=== PATIENT | female | born 1985 | race African-American/Black ===

== ENCOUNTER 2023-03-15 15:20 | Inpatient (IN) | payer OTHER ==
[~2023-03-15 15:20] MED LIST: AMPICILLIN SODIUM 2 GM VIAL IVPB ONE
[2023-03-15] MEDS ORDERED: DINOPROSTONE 10 MG VAGINAL SUPPOSITORY VG ONE (16:45)
[2023-03-15 16:57] VITALS: BMI 28.3
[2023-03-15] MEDS ORDERED: SODIUM CHLORIDE 100 ML IVPB ONE (17:30)
[2023-03-15] MEDS ORDERED: AMPICILLIN SODIUM 2 GM VIAL ONE (17:30)
[2023-03-15] MEDS: ELECTROLYTE-148 SOLN 1,000 ML IV SCH (17:30)
[2023-03-15 18:39] LABS: BASO % 0.2 % (0-2.0); EOS % 0.3 % (0-4.5); HEMATOCRIT 34.2 % (32.4-45.2); HEMOGLOBIN 11.1 GM/dL (10.7-15.3); MCH 26.4 pg (25.7-33.7); MCHC 32.3 g/dl (32.0-36.0); MEAN CELL VOLUME 81.7 fl (80-96); MEAN PLT VOLUME 10.2 fl (7.5-11.1); MONO % 8.9 % (3.8-10.2); NEUT % 80.6 % (42.8-82.8); PLATELET COUNT 123 10^3/uL (134-434); RBC 4.19 M/mm3 (3.60-5.2); RDW 18.8 % (11.6-15.6); WHITE BLOOD COUNT 9.5 K/mm3 (4.0-10.0)
[2023-03-15 18:40] LABS: PH,URINE 5.5 (5.0-8.0); URINE APPEARANCE CLEAR; URINE BILIRUBIN NEGATIVE (NEGATIVE); URINE COLOR YELLOW; URINE GLUCOSE (UA) NEGATIVE (NEGATIVE); URINE KETONE TRACE (NEGATIVE); URINE LEUK ESTERASE NEGATIVE (NEGATIVE); URINE NITRITE NEGATIVE (NEGATIVE); URINE PROTEIN TRACE (NEGATIVE); URINE UROBILINOGEN 0.2 mg/dL (0.2-1.0)
[2023-03-15] MEDS ORDERED: AMPICILLIN - 1 GM in SODIUM CHLORIDE 100 ML IVPB SCH (18:40)
[2023-03-15 18:46] LABS: INR 0.99 (0.83-1.09); PROTHROMBIN TIME (PATIENT) 11.5 SEC (9.7-13.0)
[2023-03-15 18:49] LABS: ACTIVATED PTT 26.3 SECONDS (25.2-36.5)
[2023-03-15 19:10] LABS: POTASSIUM 4.3 mmol/L (3.5-5.1)
[2023-03-15 19:12] LABS: BLOOD UREA NITROGEN 9.3 mg/dL (7-18); CALCIUM 9.1 mg/dL (8.5-10.1)
[2023-03-15 19:15] LABS: URIC ACID 5.6 mg/dL (2.6-7.2)
[2023-03-15 19:17] LABS: BILIRUBIN,TOTAL 0.3 mg/dL (0.2-1); TOT PROT 6.2 g/dl (6.4-8.2)
[2023-03-15] MEDS ORDERED: NIFEdipine 10 MG CAPSULE (FP) PO ONE (21:25)
[2023-03-15] MEDS ORDERED: NIFEdipine 10 MG CAPSULE (FP) ONE (21:27)
[2023-03-15] MEDS ORDERED: AMPICILLIN SODIUM 1 GM VIAL ONE (21:27)
[2023-03-15] MEDS: AMPICILLIN - 1 GM in SODIUM CHLORIDE 100 ML IVPB SCH (21:30)
[2023-03-15] MEDS ORDERED: NIFEdipine E.R. 30 MG TABLET PO ONE (21:30)
[2023-03-16] MEDS ORDERED: AMPICILLIN SODIUM 1 GM VIAL ONE ×2 (01:59→05:38)
[2023-03-16] MEDS: AMPICILLIN - 1 GM in SODIUM CHLORIDE 100 ML IVPB SCH ×3 (02:00→12:35)
[2023-03-16] MEDS ORDERED: PROMETHAZINE HCL 25 MG/1 ML VIAL IVPB ONE (02:30)
[2023-03-16] MEDS ORDERED: BUTORPHANOL TARTRATE 1 MG/ML VIAL IVPB ONE (02:30)
[2023-03-16] MEDS ORDERED: BUTORPHANOL TARTRATE 1 MG/ML VIAL ONE (02:33)
[2023-03-16] MEDS ORDERED: PROMETHAZINE HCL 25 MG/1 ML VIAL ONE (02:33)
[2023-03-16] MEDS ORDERED: NIFEdipine 10 MG CAPSULE (FP) ONE (05:13)
[2023-03-16] MEDS ORDERED: NIFEdipine 10 MG CAPSULE (FP) PO ONE (05:15)
[2023-03-16] MEDS ORDERED: MAGNESIUM 4GM/H20 - 4 GM/100 ML IVPB IVPB ONE ×2 (06:25)
[2023-03-16] MEDS ORDERED: MAGNESIUM SULFATE 20GM/500ML - 20 GM/500 ML INFUS.BAG ONE ×2 (07:03→17:13)
[2023-03-16] MEDS: MAGNESIUM SULFATE 20GM/500ML - 20 GM/500 ML INFUS.BAG IVPB SCH ×2 (07:05→17:20)
[2023-03-16] MEDS ORDERED: LABETALOL HCL 20 MG/4 ML VIAL ONE (07:36)
[2023-03-16] MEDS ORDERED: LABETALOL HCL 20 MG/4 ML VIAL IVPUSH ONE (07:50)
[2023-03-16 08:43] LABS: INR 0.94 (0.83-1.09); PROTHROMBIN TIME (PATIENT) 10.9 SEC (9.7-13.0)
[2023-03-16 08:44] LABS: BASO % 0.4 % (0-2.0); HEMATOCRIT 34.9 % (32.4-45.2); HEMOGLOBIN 11.3 GM/dL (10.7-15.3); LYMPH % 5.7 % (8-40); MCH 26.5 pg (25.7-33.7); MCHC 32.2 g/dl (32.0-36.0); MEAN PLT VOLUME 10.5 fl (7.5-11.1); MONO % 6.5 % (3.8-10.2); NEUT % 87.4 % (42.8-82.8); PLATELET COUNT 141 10^3/uL (134-434); RBC 4.26 M/mm3 (3.60-5.2); RDW 18.8 % (11.6-15.6)
[2023-03-16 08:46] LABS: ACTIVATED PTT 25.7 SECONDS (25.2-36.5)
[2023-03-16] MEDS: ELECTROLYTE-148 SOLN 1,000 ML IV SCH (08:50)
[2023-03-16 09:07] LABS: CALCIUM 8.3 mg/dL (8.5-10.1)
[2023-03-16 09:08] LABS: ALBUMIN 2.8 g/dl (3.4-5.0); BLOOD UREA NITROGEN 9.4 mg/dL (7-18)
[2023-03-16 09:11] LABS: CREATININE 0.9 mg/dL (0.55-1.3)
[2023-03-16 09:12] LABS: TOT PROT 6.3 g/dl (6.4-8.2)
[2023-03-16 09:13] LABS: BILIRUBIN,TOTAL 0.3 mg/dL (0.2-1)
[2023-03-16] MEDS ORDERED: FENTANYL CITRATE/PF 50 MCG/ML VIAL ONE (09:34)
[2023-03-16] MEDS ORDERED: morphine SULFATE/PF 1 MG/2 ML (2cc Syringe - QUVA) ONE (09:34)
[2023-03-16] MEDS ORDERED: KETOROLAC TROMETHAMINE 30 MG/1 ML VIAL ONE (09:43)
[2023-03-16] MEDS ORDERED: OXYTOCIN 10 UNITS/ML VIAL ONE (09:43)
[2023-03-16] MEDS ORDERED: ONDANSETRON 4 MG/2 ML VIAL ONE (09:43)
[2023-03-16] MEDS ORDERED: ceFAZolin SODIUM 1 GM VIAL ONE (09:43)
[2023-03-16] MEDS ORDERED: MISOPROSTOL 200 MCG TABLET ONE ×2 (10:22→10:33)
[2023-03-16] MEDS ORDERED: OXYTOCIN 20 UNITS in 0.9% NS 20 UNIT/1,000 ML INFUS.BAG IV ONE (11:34)
[2023-03-16] MEDS ORDERED: ONDANSETRON 4 MG/2 ML VIAL IVPUSH PRN (11:37)
[2023-03-16] MEDS ORDERED: morphine SULFATE/PF 1 MG/2 ML (2cc Syringe - QUVA) EP ONE (11:37)
[2023-03-16] MEDS ORDERED: ACETAMINOPHEN 1000 MG/100 ML BAG IVPB ONE (11:38)
[2023-03-16] MEDS: OXYTOCIN 20 UNITS in 0.9% NS 20 UNIT/1,000 ML INFUS.BAG IV SCH (11:45)
[2023-03-16] MEDS ORDERED: DIPHENOXYLATE 2.5/ATROPINE.025 1 COMBO TABLET PO ONE (12:13)
[2023-03-16] MEDS ORDERED: ACETAMINOPHEN INJECTION 100 ML IVPB ONE (12:38)
[2023-03-16] MEDS ORDERED: IBUPROFEN 800 MG/8 ML IJ IVPB ONE ×2 (14:41→20:03)
[2023-03-16] MEDS: IBUPROFEN 800 MG/8 ML IJ IVPB SCH ×2 (14:48→23:05)
[2023-03-16 19:03] LABS: BASO % 0.1 % (0-2.0); HEMATOCRIT 31.4 % (32.4-45.2); LYMPH % 5.3 % (8-40); MCH 26.4 pg (25.7-33.7); MCHC 31.8 g/dl (32.0-36.0); MEAN CELL VOLUME 83.1 fl (80-96); MEAN PLT VOLUME 10.4 fl (7.5-11.1); MONO % 7.7 % (3.8-10.2); NEUT % 86.9 % (42.8-82.8); PLATELET COUNT 137 10^3/uL (134-434); RBC 3.78 M/mm3 (3.60-5.2); RDW 19.2 % (11.6-15.6); WHITE BLOOD COUNT 15.3 K/mm3 (4.0-10.0)
[2023-03-16 19:21] LABS: POTASSIUM 5.3 mmol/L (3.5-5.1)
[2023-03-16 19:25] LABS: CALCIUM 7.8 mg/dL (8.5-10.1)
[2023-03-16 19:26] LABS: ALBUMIN 2.6 g/dl (3.4-5.0); BLOOD UREA NITROGEN 8.8 mg/dL (7-18)
[2023-03-16 19:29] LABS: CREATININE 1.1 mg/dL (0.55-1.3)
[2023-03-16 19:31] LABS: BILIRUBIN,TOTAL 0.2 mg/dL (0.2-1); TOT PROT 5.6 g/dl (6.4-8.2)
[2023-03-17] MEDS ORDERED: oxyCODONE HCL 5 MG TABLET PO PRN ×2 (00:11)
[2023-03-17] MEDS ORDERED: MAGNESIUM SULFATE 20GM/500ML - 20 GM/500 ML INFUS.BAG ONE (02:41)
[2023-03-17] MEDS: MAGNESIUM SULFATE 20GM/500ML - 20 GM/500 ML INFUS.BAG IVPB SCH ×2 (02:56→07:36)
[2023-03-17] MEDS: OXYTOCIN 20 UNITS in 0.9% NS 20 UNIT/1,000 ML INFUS.BAG IV SCH (02:57)
[2023-03-17] MEDS ORDERED: OXYTOCIN 20 UNITS in 0.9% NS 20 UNIT/1,000 ML INFUS.BAG IV ONE (02:59)
[2023-03-17] MEDS ORDERED: IBUPROFEN 800 MG/8 ML IJ IVPB ONE (07:27)
[2023-03-17] MEDS: IBUPROFEN 800 MG/8 ML IJ IVPB SCH ×3 (07:34→16:23)
[2023-03-17 07:40] LABS: BASO % 0.2 % (0-2.0); EOS % 0.2 % (0-4.5); HEMATOCRIT 28.8 % (32.4-45.2); HEMOGLOBIN 9.1 GM/dL (10.7-15.3); LYMPH % 7.3 % (8-40); MCH 26.7 pg (25.7-33.7); MCHC 31.7 g/dl (32.0-36.0); MEAN CELL VOLUME 84.2 fl (80-96); MEAN PLT VOLUME 10.6 fl (7.5-11.1); MONO % 6.4 % (3.8-10.2); NEUT % 85.9 % (42.8-82.8); PLATELET COUNT 128 10^3/uL (134-434); RBC 3.41 M/mm3 (3.60-5.2); RDW 19.4 % (11.6-15.6); WHITE BLOOD COUNT 11.8 K/mm3 (4.0-10.0)
[2023-03-17] MEDS: FERROUS SO4 325 MG TABLET (FP) PO SCH (11:00)
[2023-03-17] MEDS ORDERED: FERROUS SO4 325 MG TABLET (FP) ONE (11:01)
[2023-03-17 11:31] LABS: CALCIUM 7.1 mg/dL (8.5-10.1)
[2023-03-17 11:32] LABS: ALBUMIN 2.4 g/dl (3.4-5.0); BLOOD UREA NITROGEN 7.5 mg/dL (7-18)
[2023-03-17 11:35] LABS: TOT PROT 5.3 g/dl (6.4-8.2)
[2023-03-17 11:36] LABS: BILIRUBIN,TOTAL 0.2 mg/dL (0.2-1)
[2023-03-17] MEDS: SIMETHICONE 80 MG TAB.CHEW (FP) PO PRN (21:11)
[2023-03-17 23:54] VITALS: RESP 18
[2023-03-18] MEDS: IBUPROFEN 800 MG/8 ML IJ IVPB SCH ×2 (00:28→06:19)
[2023-03-18] MEDS: FERROUS SO4 325 MG TABLET (FP) PO SCH (10:54)
[2023-03-18] MEDS: LABETALOL HCL 200 MG TABLET (FP) PO PRN ×2 (11:21→21:23)
[2023-03-18] MEDS: SIMETHICONE 80 MG TAB.CHEW (FP) PO PRN ×2 (17:41→21:14)
[2023-03-18] MEDS: IBUPROFEN 600 MG TABLET (FP) PO SCH ×2 (17:41→23:00)
[2023-03-19] MEDS: IBUPROFEN 600 MG TABLET (FP) PO SCH ×2 (05:31→12:42)
[2023-03-19 05:37] VITALS: TEMP 97.9
[2023-03-19] MEDS: LABETALOL HCL 200 MG TABLET (FP) PO PRN ×2 (05:39→12:42)
[2023-03-19 07:15] LABS: BASO % 0.3 % (0-2.0); EOS % 0.9 % (0-4.5); HEMATOCRIT 22.6 % (32.4-45.2); HEMOGLOBIN 7.2 GM/dL (10.7-15.3); LYMPH % 14.6 % (8-40); MCH 26.8 pg (25.7-33.7); MCHC 31.8 g/dl (32.0-36.0); MEAN CELL VOLUME 84.3 fl (80-96); MEAN PLT VOLUME 10.4 fl (7.5-11.1); MONO % 7.5 % (3.8-10.2); NEUT % 76.7 % (42.8-82.8); PLATELET COUNT 153 10^3/uL (134-434); RBC 2.68 M/mm3 (3.60-5.2); RDW 19.1 % (11.6-15.6); WHITE BLOOD COUNT 9.4 K/mm3 (4.0-10.0)
[2023-03-19] MEDS: FERROUS SO4 325 MG TABLET (FP) PO SCH (10:34)
[2023-03-19 13:25] VITALS: BP 134/94; PULSE 93
== END 2023-03-19 13:55 | disposition home or self-care (01) | DRG 540 ==
LOC: JLDR 15:20 → J3W 03-17 12:08
PROVIDERS: ADMIT Obstetrics & Gynecology; ATTEND Obstetrics & Gynecology
PROC: 10D00Z1 Extraction of Products of Conception, Low, Open Approach (ICD-10-PCS; principal; 2023-03-16)
DX: O14.14 Severe pre-eclampsia complicating childbirth (principal); O48.0 Post-term pregnancy; O99.824 Streptococcus B carrier state complicating childbirth; Z3A.40 40 weeks gestation of pregnancy; Z37.0 Single live birth
CPT/HCPCS: 36415; 80048; 80053; 81003; 82570; 83735; 84156; 84550; 85025; 85610; 85730; 86780; 86850; 86900; 86901; 88307-TC; 94010

== ENCOUNTER 2023-04-05 03:55 | Inpatient (IN) | payer OTHER ==
[2023-04-05 04:05] VITALS: BMI 49.9
[2023-04-05] MEDS ORDERED: LABETALOL HCL 200 MG TABLET (FP) PO ONE (04:29)
[2023-04-05] MEDS ORDERED: LACTATED RINGERS SOLUTION 1000 ML INFUS.BAG IV ONE (04:31)
[2023-04-05] MEDS ORDERED: LABETALOL HCL 200 MG TABLET (FP) ONE (04:32)
[2023-04-05 05:00] LABS: BASO % 0.5 % (0-2.0); EOS % 0.7 % (0-4.5); HEMATOCRIT 32.5 % (32.4-45.2); HEMOGLOBIN 10.5 GM/dL (10.7-15.3); LYMPH % 10.1 % (8-40); MCH 26.3 pg (25.7-33.7); MCHC 32.4 g/dl (32.0-36.0); MEAN CELL VOLUME 81.4 fl (80-96); MEAN PLT VOLUME 9.4 fl (7.5-11.1); MONO % 5.4 % (3.8-10.2); NEUT % 83.3 % (42.8-82.8); PLATELET COUNT 316 10^3/uL (134-434); RDW 17.9 % (11.6-15.6); WHITE BLOOD COUNT 10.8 K/mm3 (4.0-10.0)
[2023-04-05 05:13] LABS: POTASSIUM 4.9 mmol/L (3.5-5.1)
[2023-04-05 05:15] LABS: CALCIUM 9.3 mg/dL (8.5-10.1)
[2023-04-05 05:16] LABS: ALBUMIN 3.7 g/dl (3.4-5.0); BLOOD UREA NITROGEN 13.6 mg/dL (7-18); MAGNESIUM 1.8 mg/dL (1.8-2.4)
[2023-04-05 05:19] LABS: CREATININE 1.1 mg/dL (0.55-1.3)
[2023-04-05 05:20] LABS: TOT PROT 7.3 g/dl (6.4-8.2)
[2023-04-05 05:25] LABS: BILIRUBIN,TOTAL 0.1 mg/dL (0.2-1)
[2023-04-05 06:45] LABS: EPI CELLS 18 /uL (0-25.1); HYALINE CASTS 0 /uL (0-3.1); PH,URINE 5.5 (5.0-8.0); URINE APPEARANCE CLEAR; URINE BACTERIA 102 /uL (0-1359); URINE BILIRUBIN NEGATIVE (NEGATIVE); URINE COLOR YELLOW; URINE GLUCOSE (UA) NEGATIVE (NEGATIVE); URINE KETONE NEGATIVE (NEGATIVE); URINE LEUK ESTERASE 1+ (NEGATIVE); URINE NITRITE NEGATIVE (NEGATIVE); URINE PROTEIN NEGATIVE (NEGATIVE); URINE RBC 13 /uL (0-23.9); URINE UROBILINOGEN 0.2 mg/dL (0.2-1.0); URINE WBC 28 /uL (0-25.8)
[2023-04-05] MEDS ORDERED: CEPHALEXIN MONOHYDRATE 500 MG CAPSULE (UD) PO ONE (06:55)
[2023-04-05] MEDS ORDERED: CEPHALEXIN MONOHYDRATE 500 MG CAPSULE (UD) ONE (08:00)
[2023-04-05] MEDS ORDERED: CEFTRIAXONE 1,000 MG in DEXTROSE 5%-WATER - 50 ML IVPB ONE (11:09)
[2023-04-05] MEDS ORDERED: CEFTRIAXONE 1 GM/50 ML BAG ONE (11:12)
[2023-04-05 11:52] VITALS: RESP 18
[2023-04-05 14:44] VITALS: BP 140/73; PULSE 65; TEMP 98.3
[2023-04-05] MEDS ORDERED: PIPERACILLIN/TAZOB 3.375 GM 3.375 GM in DEXTROSE 5%-WATER - 50 ML IVPB SCH (18:00)
== END 2023-04-05 16:12 | disposition home or self-care (01) | DRG 561 ==
LOC: JER 03:55 → JERBED 12:02 → J5S 14:24
DX: O99.63 Diseases of the digestive system complicating the puerperium (principal); N13.30 Unspecified hydronephrosis; N13.4 Hydroureter; O99.215 Obesity complicating the puerperium; O90.89 Other complications of the puerperium, not elsewhere classified; A08.4 Viral intestinal infection, unspecified
CPT/HCPCS: 36415; 74177-TC; 80053; 81003; 83615; 83690; 83735; 85025; 87086; 93005; 93010; 99285-25; Q9967